=== PATIENT | female | born 1980 | race African-American/Black ===

== ENCOUNTER 2019-09-08 06:49 | Inpatient (IN) | payer MEDICAID, OTHER ==
[~2019-09-08] VITALS: Ht 172.7 cm; Wt 96.6 kg
[2019-09-08] VITALS (8 sets, daily range): BP systolic 59–137; BP diastolic 29–97
[2019-09-08 07:27] LABS: BASOPHILS % 0.8 % (0.0-2.0); EOSINOPHILS % 3.9 % (0.0-5.0); HEMOGLOBIN. 10.5 g/dL (12.0-16.0); LYMPHOCYTES % 23.1 % (20.0-50.0); MEAN CORPUSCULAR HEMOGLOBIN 31.1 pg (28.0-32.0); MEAN CORPUSCULAR VOLUME 94.3 fL (81.0-99.0); MEAN PLATELET VOLUME 9.3 fl (7.4-10.4); MONOCYTES % 8.2 % (2.0-8.0); PLATELET 169 x1000/uL (130-400); RED BLOOD CELL COUNT 3.39 mill/uL (4.2-5.4); RED CELL DISTRIBUTION WIDTH 15.9 % (11.6-14.6)
[2019-09-08 07:30] LABS: CHLORIDE 109 mEq/L (98-107)
[2019-09-08] MEDS ORDERED: MORPHINE SULFATE 4 MG/ML CPJ (NOT FOR IM USE) IV ONE (07:30)
[2019-09-08] MEDS ORDERED: ASPIRIN 325MG EC TABLET PO ONE (08:00)
[2019-09-08] MEDS ORDERED: ASPI-1393 PO (11:38)
[2019-09-08] MEDS ORDERED: CARV12.545 PO (11:38)
[2019-09-08] MEDS ORDERED: VALS80TA30 PO (11:38)
[2019-09-08] MEDS ORDERED: ATOR40TA70 PO (11:38)
[2019-09-08] MEDS ORDERED: TICA90TA PO (11:38)
[2019-09-08] MEDS ORDERED: FERR324T4 PO (11:38)
[2019-09-08] MEDS ORDERED: MAGNESIUM HYDROXIDE 400MG/5ML 30ML UDC PO PRN (13:15)
[2019-09-08] MEDS ORDERED: LORAZEPAM 0.5MG TABLET PO PRN (13:15)
[2019-09-08] MEDS ORDERED: ACETAMINOPHEN 325MG TABLET PO PRN (13:15)
[2019-09-08] MEDS ORDERED: DIPHENHYDRAMINE 50MG/ML VIAL IV PRN (13:15)
[2019-09-08] MEDS ORDERED: IPRATROPIUM/ALBUTEROL 0.5-3(2.5)MG/3ML NEB NEB PRN (13:15)
[2019-09-08] MEDS ORDERED: KETOROLAC 30MG/ML VIAL IV PRN (13:15)
[2019-09-08] MEDS ORDERED: MAGNESIUM/ALUMINUM HYDROXIDE/SIMETHICONE 30ML UDC PO PRN (13:15)
[2019-09-08] MEDS ORDERED: ONDANSETRON HCL 4MG/2ML INJ IV PRN (13:15)
[2019-09-08] MEDS ORDERED: TEMAZEPAM 15MG CAPSULE PO PRN (13:15)
[2019-09-08] MEDS ORDERED: PROMETHAZINE/DEXTROMETHORPHAN 6.25-15MG/5ML BOTTLE 120ML PO PRN (13:15)
[2019-09-08] MEDS ORDERED: GUAIFENESIN 200MG/10ML SUGAR FREE UDC PO PRN (13:15)
[2019-09-08] MEDS: MORPHINE SULFATE 4 MG/ML CPJ (NOT FOR IM USE) IV PRN ×2 (14:27→21:43)
[2019-09-08] MEDS: SODIUM CHLORIDE 0.9% INJ 3ML FLUSH IVF SCH ×2 (14:30→21:33)
[2019-09-08] MEDS: TICAGRELOR 90 MG TABLET PO SCH (17:43)
[2019-09-08 18:40] LABS: UCG SCREEN NEGATIVE
[2019-09-08 19:01] LABS: *AMPHETAMINES SCREEN URINE NEGATIVE (NEGATIVE); *BARBITURATES SCREEN URINE NEGATIVE (NEGATIVE)
[2019-09-08 19:02] LABS: *BENZODIAZEPINES SCREEN URINE NEGATIVE (NEGATIVE); *COCAINE SCREEN URINE NEGATIVE (NEGATIVE); CANNABINOID URINE SCREEN NEGATIVE (NEGATIVE); METHADONE URINE SCREEN NEGATIVE (NEGATIVE); PHENCYCLIDINE URINE SCREEN NEGATIVE (NEGATIVE)
[2019-09-08 19:08] LABS: OPIATES URINE SCREEN PRESUMTIVE POSITIVE (NEGATIVE)
[2019-09-08] MEDS ORDERED: ATORVASTATIN CALCIUM 40MG TABLET PO SCH (21:00)
[2019-09-08] MEDS: FAMOTIDINE 20MG TABLET PO SCH (21:32)
[2019-09-08] MEDS: CARVEDILOL 12.5MG TABLET PO SCH (21:32)
[2019-09-09] VITALS (10 sets, daily range): BP systolic 102–130; BP diastolic 73–85
[2019-09-09] MEDS: SODIUM CHLORIDE 0.9% INJ 3ML FLUSH IVF SCH ×2 (05:05→14:24)
[2019-09-09] MEDS: FAMOTIDINE 20MG TABLET PO SCH (08:41)
[2019-09-09] MEDS: TICAGRELOR 90 MG TABLET PO SCH ×2 (08:41→17:03)
[2019-09-09] MEDS: CARVEDILOL 12.5MG TABLET PO SCH (08:41)
[2019-09-09] MEDS: MORPHINE SULFATE 4 MG/ML CPJ (NOT FOR IM USE) IV PRN ×2 (08:42→14:47)
[2019-09-09] MEDS ORDERED: LOSARTAN POTASSIUM 50 MG TABLET PO SCH (09:00)
[2019-09-09] MEDS ORDERED: ASPIRIN 81MG EC TABLET PO SCH (09:00)
[2019-09-09] MEDS ORDERED: FERROUS SULFATE 325MG TABLET PO SCH (09:00)
[2019-09-09 10:14] LABS: BASOPHILS % 0.5 % (0.0-2.0); EOSINOPHILS % 3.2 % (0.0-5.0); HEMATOCRIT. 30.8 % (36.0-48.0); HEMOGLOBIN. 10.3 g/dL (12.0-16.0); LYMPHOCYTES % 23.5 % (20.0-50.0); MEAN CORPUSCULAR HEMOGLOBIN 31.4 pg (28.0-32.0); MEAN CORPUSCULAR VOLUME 93.5 fL (81.0-99.0); MONOCYTES % 7.7 % (2.0-8.0); NEUTROPHILS % 65.1 % (40.0-76.0); PLATELET 175 x1000/uL (130-400); RED BLOOD CELL COUNT 3.29 mill/uL (4.2-5.4); RED CELL DISTRIBUTION WIDTH 15.7 % (11.6-14.6)
[2019-09-09 10:27] LABS: CHLORIDE 108 mEq/L (98-107)
== END 2019-09-09 17:15 | disposition home or self-care (01) | DRG 198 ==
LOC: ER 06:49 → 5EST 08:06 → EDBEDREQSVC 08:09 → EDBEDREQTM 08:09 → EDBEDREQ 08:09 → ENRESERV 08:54
PROVIDERS: ADMIT Internal Medicine; ATTEND Internal Medicine
DX: R07.89 Other chest pain (principal); I25.10 Atherosclerotic heart disease of native coronary artery without angina pectoris; D64.9 Anemia, unspecified; E78.5 Hyperlipidemia, unspecified; J45.909 Unspecified asthma, uncomplicated; I10 Essential (primary) hypertension; I25.2 Old myocardial infarction; Z79.02 Long term (current) use of antithrombotics/antiplatelets; Z79.82 Long term (current) use of aspirin; Z83.3 Family history of diabetes mellitus; Z95.5 Presence of coronary angioplasty implant and graft; Z98.51 Tubal ligation status; Z79.899 Other long term (current) drug therapy
CPT/HCPCS: 36415; 71045; 78582; 80048; 80305; 81025; 83880; 84484; 85379; 93005; 93306; 93970; 96374; 99285; A9558; J2270; J8499